=== PATIENT | female | born 1985 | race Caucasian/White ===

== ENCOUNTER 2020-07-31 00:07 | Emergency (ER) | payer OTHER ==
[~2020-07-31] VITALS: Ht 152.4 cm; Wt 90.7 kg
[2020-07-31] MEDS ORDERED: AMOX TR-K250 MG/5 M (00:18)
[2020-07-31] MEDS ORDERED: ATORVASTATIN CA80 MG (00:18)
[2020-07-31] MEDS ORDERED: TRIKAFTA 100/51 EACH (00:19)
[2020-07-31] MEDS ORDERED: BRILINTA90 MG (00:19)
[2020-07-31] MEDS ORDERED: CHILDREN'S ASPI81 MG (00:19)
[2020-07-31] MEDS ORDERED: CITALOPRAM20 MG/10 M (00:19)
[2020-07-31] MEDS ORDERED: TORSEMIDE20 MG (00:20)
[2020-07-31] MEDS ORDERED: ATIVAN1 M1 (00:20)
[2020-07-31] MEDS ORDERED: FLUDROCORTISON0.1 MG (00:20)
[2020-07-31] MEDS ORDERED: SEROQUEL50 MG (00:21)
[2020-07-31] MEDS ORDERED: URSO250 MG (00:21)
[2020-07-31] MEDS ORDERED: LYRICA100 MG (00:21)
[2020-07-31] MEDS ORDERED: PEPCID AC20 MG PO (16:00)
[2020-07-31] MEDS ORDERED: MEDROLPACK PO (16:00)
[2020-07-31] MEDS ORDERED: PERCOCET 5-3251 EACH PO (16:00)
== END 2020-07-31 16:44 | disposition home or self-care (01) ==
LOC: ER 00:07
DX: I70.291 Other atherosclerosis of native arteries of extremities, right leg (principal); I73.89 Other specified peripheral vascular diseases; M25.461 Effusion, right knee; M79.604 Pain in right leg; M79.661 Pain in right lower leg; I11.0 Hypertensive heart disease with heart failure; I50.9 Heart failure, unspecified